=== PATIENT | female | born 1950 | race Caucasian/White ===

== ENCOUNTER 2018-05-11 18:31 | Emergency (ER) | payer MEDICARE ==
[~2018-05-11] VITALS: Ht 167.6 cm; Wt 150.0 kg
[2018-05-11 18:45] VITALS: BP 180/103
[2018-05-11] MEDS ORDERED: NAPR-56 PO (20:07)
[2018-05-11] MEDS ORDERED: DICL100G15 TOP (20:07)
[2018-05-11] MEDS ORDERED: HYDROcodone/acetaminophen 10/325mg tab PO ONE (20:10)
== END 2018-05-11 20:27 | disposition home or self-care (01) ==
LOC: ER 18:33
DX: M17.12 Unilateral primary osteoarthritis, left knee (principal); G89.29 Other chronic pain; Z88.0 Allergy status to penicillin; Z79.899 Other long term (current) drug therapy
CPT/HCPCS: 99283